=== PATIENT | female | born 1965 | race Hispanic/Latino ===

== ENCOUNTER 2021-01-15 05:44 | Emergency (ER) | payer BC ==
[~2021-01-15] VITALS: Ht 162.6 cm; Wt 65.8 kg
[2021-01-15] MEDS ORDERED: ANUSOL-HC25 MG RC (06:05)
[2021-01-15] MEDS ORDERED: COLACE100 MG PO (06:05)
== END 2021-01-15 06:10 | disposition home or self-care (01) ==
LOC: FSED 06:05
DX: K64.5 Perianal venous thrombosis (principal)
CPT/HCPCS: 99282